=== PATIENT | male | born 1945 | race Caucasian/White ===

== ENCOUNTER 2019-01-25 08:48 | Inpatient (IN) | payer OTHER ==
[2019-01-14 09:17] LABS: ABSOLUTE BASOPHILS 0.1 thou/uL (0.0-0.2); ABSOLUTE EOSINOPHILS 0.2 thou/uL (0.0-0.7); ABSOLUTE LYMPHOCYTES 1.9 thou/uL (0.8-5.3); ABSOLUTE MONOCYTES 0.6 thou/uL (0.0-1.2); ABSOLUTE NEUTROPHILS 4.6 thou/uL (1.6-8.1); BASOPHILS 1.3 %; EOSINOPHILS 2.9 %; HEMATOCRIT 44.7 % (42.0-52.0); HEMOGLOBIN 15.5 gm/dL (14.0-18.0); MCH 31.6 pg (26.0-34.0); MCHC 34.6 g/dL (28.0-37.0); MCV 91.3 fL (80.0-100.0); MONOCYTES 7.8 %; MPV 8.9 fl. (7.2-11.1); NUCLEATED RBCS 0 /100WBC; PLATELET COUNT* 295 thou/uL (150-400); RDW-CV 12.3 % (10.5-14.5); WBC 7.3 thou/uL (4.0-11.0)
[2019-01-14 09:31] LABS: APTT 27.3 Seconds (25.0-31.3); PROTIME 10.3 Seconds (9.20-11.50)
[2019-01-14 09:39] LABS: ALBUMIN 3.7 g/dL (3.4-5.0); CALCIUM 8.8 mg/dL (8.5-10.1); POTASSIUM 4.2 mmol/L (3.5-5.1); TOTAL BILIRUBIN 0.8 mg/dL (<0.1-1.0); TOTAL PROTEIN 7.4 g/dL (6.4-8.2)
[2019-01-14 10:35] LABS: ESR (SEDRATE) 10 mm/hr (0-20)
--- NOTE | 2019-01-14 17:18 | EKG ---
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
[2019-01-15 16:06] LABS: GLYCOHEMOGLOBIN (HGB A1C) 5.8 % (4.8-5.6)
[~2019-01-25] VITALS: Ht 175.3 cm; Wt 107.0 kg
[~2019-01-25 08:48] MED LIST: CRESTOR20 MG PO; LIPITOR 20 MG T20 M1 PO; NEXIUM40 MG PO
[2019-01-25 10:41] VITALS: BP 150/91
[2019-01-25 18:35] VITALS: BP 136/83
--- NOTE | 2019-01-25 18:42 | NUR ---
PATIENT ARRIVED TO UNIT AT 1800. ALERT AND ORIENTED X4 BUT VERY SLEEPY. VSS ON 3 LITERS. NO COMPLAINTS UPON ASSESSMENT. FLUIDS STARTED AND INFUSING ORDERED. MEPILEX TO RIGHT HIP IS CLEAN, DRY, AND INTACT. ORIENTED PATIENT AND SPOUSE ORIENTED TO ROOM AND UNIT. FALL PRECAUTIONS IN PLACE. CALL LIGHT IN REACH. WILL CONTINUE TO MONITOR.
[2019-01-25 19:30] VITALS: BP 155/92
[2019-01-26] VITALS (7 sets, daily range): BP systolic 121–140; BP diastolic 67–78
[2019-01-26 04:37] LABS: HEMATOCRIT 38.5 % (42.0-52.0); HEMOGLOBIN 13.1 gm/dL (14.0-18.0)
--- NOTE | 2019-01-26 05:06 | NUR ---
PT SLEPT MOST OF SHIFT. ASSESSMENT DOCUMENTED. MEDS GIVEN PER E-MAR. IV PATENT, FLUIDS INFUSING. PAIN MEDS GIVEN PER E-MAR WITH RELIEF. ABDUCTOR WEDGE REMAINED IN PLACE. PT UNABLE TO VOID THIS SHIFT, BLADDER SCANNER READING 606, PHYSICIAN NOTIFIED, ORDERS RECIEVED. PT STATED HE WANTED TO TRY A TO URNIATE A LITTLE LATER BEFORE STRAIGHT CATH. PT STILL UNABLE TO VOID. STRAIGHT CATHED WITH 1050ML OUT. SCD'S IN PLACE. REMAINED AT BEDSIDE. DRESSING C/D/I. WILL CONTINUE WITH PLAN OF CARE.
[2019-01-26] MEDS ORDERED: ELIQUIS2.5 MG PO (10:05)
[2019-01-26] MEDS ORDERED: OXYCODONE HCL 55 MG PO (10:08)
--- NOTE | 2019-01-26 12:20 | NUR ---
CM CALLED IN PRESCRIPTION FOR ELIQUIS WRITTEN TO PT.'S [facility]ARM[facility] IN [place]. WILL CALL IN ONE HR.TO CHECK COPAY.
--- NOTE | 2019-01-26 13:55 | NUR ---
PER PHARMACY, COPAY FOR ELIQUIS IS $43. INFORMED PT.AND . THERAPY SAID HE DID WELL PHYSICALLY IN THERAPY BUT IS VERY ANXIOUS.
--- NOTE | 2019-01-26 16:24 | NUR ---
PT NOT PROGRESSING TOWARDS GOALS THIS SHIFT. PT PAIN MANAGED WITH PRN OXY IR. NO PRESCRIPTIONS OBTAINED FOR HOME PAIN MANAGEMENT AT THIS TIME. ATTEMPTS MADE TO CONTACT SURGERY RESIDENTS. HOSPITALISTS LEFT THE BUILDING ALREADY. UPDATED PT ON PLAN OF CARE AND PT AND STATE THEY WOULD NOW PREFER TO STAY ANOTHER NIGHT FOR PAIN MANAGEMENT. PT TOLERATING ORAL INTAKE. NO OTHER CONCERNS AT THIS TIME. CLWR. WCTM.
--- NOTE | 2019-01-26 17:02 | NUR ---
PT AND SPOUSE DISCUSSED PLAN OF CARE WITH SURGERY RESIDENT. PAIN MANAGEMENT PRESCRIPTIONS OBTAINED. PT AND SPOUSE OK WITH DISCHARGE NOW. DISCHARGE INSTRUCTIONS DISCUSSED WITH PT AND SPOUSE. PT REPORTS UNDERSTANDING. NO OTHER CONCERNS AT THIS TIME. CLWR. WCTM.
== END 2019-01-26 17:15 | disposition home or self-care (01) | DRG 470 ==
LOC: M.PRE 08:48 → M.TBA 09:29 → M.ORTHSURG 09:29 → M.PRE 14:11 → M.ORTHSURG 17:49
PROVIDERS: Internal Medicine; Orthopaedic Surgery; ADMIT Internal Medicine
PROC: 0SR903A Replacement of Right Hip Joint with Ceramic Synthetic Substitute, Uncemented, Open Approach (ICD-10-PCS; principal; 2019-01-25)
DX: M16.11 Unilateral primary osteoarthritis, right hip (principal); D62 Acute posthemorrhagic anemia; E78.5 Hyperlipidemia, unspecified; K21.9 Gastro-esophageal reflux disease without esophagitis; Z79.899 Other long term (current) drug therapy

== ENCOUNTER → 2020-04-11 | Outpatient (CLI) | payer OTHER ==
[~2020-04-11] MED LIST changes: +ELIQUIS2.5 MG PO; +FINASTERIDE5 MG PO; +OXYCODONE HCL 55 MG PO; +SILODOSIN8 MG PO
[2020-04-11 11:24] LABS: ABSOLUTE BASOPHILS 0.1 thou/uL (0.0-0.2); ABSOLUTE EOSINOPHILS 0.2 thou/uL (0.0-0.7); ABSOLUTE LYMPHOCYTES 1.6 thou/uL (0.8-5.3); ABSOLUTE MONOCYTES 0.5 thou/uL (0.0-1.2); ABSOLUTE NEUTROPHILS 4.2 thou/uL (1.6-8.1); BASOPHILS 1.2 %; EOSINOPHILS 2.4 %; LYMPHOCYTES 24.5 %; MCH 32.2 pg (26.0-34.0); MCHC 34.9 g/dL (28.0-37.0); MCV 92.1 fL (80.0-100.0); MONOCYTES 8.1 %; MPV 8.5 fl. (7.2-11.1); NUCLEATED RBCS 0 /100WBC; PLATELET COUNT* 297 thou/uL (150-400); POLYS 63.8 %; RBC 4.67 mil/uL (4.50-6.00); RDW-CV 12.6 % (10.5-14.5); WBC 6.6 thou/uL (4.0-11.0)
[2020-04-11 11:34] LABS: APTT 26.5 Seconds (25.0-31.3); PROTIME 10.7 Seconds (9.20-11.50)
[2020-04-11 11:50] LABS: ALBUMIN 3.7 g/dL (3.4-5.0); CALCIUM 8.9 mg/dL (8.5-10.1); CREATININE 1.1 mg/dL (0.6-1.3); POTASSIUM 4.7 mmol/L (3.5-5.1); TOTAL BILIRUBIN 0.6 mg/dL (<0.1-1.0); TOTAL PROTEIN 7.7 g/dL (6.4-8.2)
[2020-04-11 13:01] LABS: ESR (SEDRATE) 46 mm/hr (0-20)
--- NOTE | 2020-04-11 13:26 | EKG ---
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: : 1945 Requested By: Nelson Arana Order Number: [id number] Reading MD: Torres Rees Measurements Intervals [place] Rate: 71 P: 67 SC: 149 QRS: 70 QRSD: 101 T: -4 QT: 403 QTc: 438 Interpretive Statements Sinus rhythm Atrial premature complex Nonspecific T wave abnormality lead III Compared to ECG 01/14/2019 09:31:23 Atrial premature complex(es) now present Electronically Signed On 04-11-2020 13:26:39 CDT by Torres Rees [email or web address] <ELECTRONICALLY SIGNED> By: Torres Rees MD, [facility] 04/11/20 1326 1128 1128 Torres Rees MD, [facility] /EPI
[2020-04-12 02:06] LABS: GLYCOHEMOGLOBIN (HGB A1C) 5.6 % (4.8-5.6)
== END ==
LOC: M.LAB 11:06
PROVIDERS: ATTEND Orthopaedic Surgery
DX: Z01.812 Encounter for preprocedural laboratory examination (principal); Z20.828 Contact with and (suspected) exposure to other viral communicable diseases; M16.12 Unilateral primary osteoarthritis, left hip; I49.9 Cardiac arrhythmia, unspecified

== ENCOUNTER 2020-04-17 07:12 | Observation (INO) | payer OTHER, MEDICARE ==
[~2020-04-17] VITALS: Ht 175.3 cm; Wt 102.1 kg
[2020-04-17 08:00] VITALS: BP 149/79
[2020-04-17 13:41] VITALS: BP 125/74
[2020-04-17 22:30] VITALS: BP 108/72
[2020-04-18] VITALS (7 sets, daily range): BP systolic 107–128; BP diastolic 59–70
[2020-04-18 03:43] LABS: HEMATOCRIT 36.5 % (42.0-52.0); HEMOGLOBIN 12.7 gm/dL (14.0-18.0)
[2020-04-18] MEDS ORDERED: ELIQUIS5 MG PO (10:14)
[2020-04-18] MEDS ORDERED: OXYCODONE HCL 55 MG PO (10:14)
--- NOTE | 2020-05-16 10:43 | OP ---
[address] [address] OPERATIVE REPORT Name: MELIA TENA EVA Room: [address] Justin Menendez#: [id number] Admission: 04/17/20 Attend Phys: Luz Elias Discharge: 04/18/20 Date of : 41 Report #: [id number] THIS REPORT FOR: //name// cc: Eliezer Bliss Gregg R. DO ~ CC: Eliezer Ayala DATE OF SERVICE: 04/17/2020 PREOPERATIVE DIAGNOSIS: Advanced degenerative joint disease, left hip. POSTOPERATIVE DIAGNOSIS: Advanced degenerative joint disease, left hip. PROCEDURE: Left total hip arthroplasty. SURGEON: Nelson Arana DO ANESTHESIA: General endotracheal. COMPLICATIONS: None. ANTIBIOTICS: 2 g Ancef IVPB 30 minutes prior to incision. IMPLANTS: Biomet G7 total hip system with a 60 mm acetabular shell, a high wall 40 mm liner, a 14 x 113 mm femoral stem, a ceramic 40 mm head with a -3 taper adapter, a 6.5 x 25 mm screw, and a 6.5 x 30 mm screw. He received 2 grams of vancomycin topically in his incision and 1 gram of TXA IV preop and 1 gram postoperatively. ESTIMATED BLOOD LOSS: Less than 300 mL. INDICATIONS FOR SURGERY: The patient is a 74-year-old male with longstanding severe left hip pain. He is here today for elective surgical intervention. Risks and complications were discussed in detail with the patient and has been attached to the chart, december refer to. I reviewed them again with him and family today. All questions were answered. Signed informed consent is attached to chart, december refer to and his hip is marked preoperatively for timeout technique. DESCRIPTION OF PROCEDURE: The patient was taken to the operating suite and placed on the [place] table in supine position. Following general endotracheal anesthetic, the left hip was designated appropriate surgical site with timeout technique. The outline of the incision was made approximately 1 cm posterior to the ASIS, 1 cm distal and 6 cm in length. Incision was carried through skin and subcutaneous tissue after injecting the skin with [place] [address] OPERATIVE REPORT Name: MALLIKA,MELIA EVA Room: [address] Justin Menendez#: [id number] Admission: 04/17/20 Attend Phys: Luz Elias Discharge: 04/18/20 Date of : 41 Report #: [id number] incision was carried down to the tensor fascia. The tensor fascia was then incised in line with the skin incision, a cm posterior to the muscular interval of the sartorius and the tensor fascia michelle. This interval was then followed with blunt finger dissection down to the circumflex vessels, which were treated with Aquamantys and resected. With the appropriate retractors in place, the hip capsule is delineated, treated with the Aquamantys and resected anteriorly. A resection of the femur was then performed, one to the base of femoral neck, a fingerbreadth above the lesser trochanter, second at the base of femoral head. The femoral neck napkin ring portion is removed with bone tenaculum. The femoral head was removed with bone tenaculum as well measured on the back table and a reamer one size under the final cup was then utilized to ream the acetabulum under direct visualization as well as C-arm fluoroscopy. A 59 mm reamer was placed in the appropriate alignment and the appropriate depth. The final 60 mm cup was then obtained, placed on the back table, prepared for implant with vancomycin powder topically removing two of the screw holes. This was impacted firmly into place utilizing direct visualization, C-arm fluoroscopy and an external guide for alignment purposes. Once seated, the two drill holes were performed, measured and the appropriate-sized screws were placed. The apical screw cover was then placed. Drier And Evaporator Operator x-rays obtained to make certain that screws were in appropriate alignment and not in a problem area. The high wall liner was then impacted firmly in place with a high wall in the superior anterior direction. Attention was then turned to the femur. The femur was externally rotated. Foot was appropriately positioned with the appropriate retractors to allow access to the proximal femur. Proximal femur was then prepared with a box osteotome followed by rattail broach then sequentially broached to the appropriate size stem. The trial reduction was performed with a -3 taper adapter. Drier And Evaporator Operator x-rays were obtained to determine leg length and alignment of the stem as well as appropriate size. The leg was then placed through full range of motion at the hip and found to be extremely stable. Final components were then obtained, placed on the back table. Trial components were removed. Copious irrigation was carried out throughout the incision. The incision was treated with the Aquamantys where necessary as well as direct pressure. The incision has been injected with anesthetic solution through every layer throughout the procedure. Final stem was then impacted firmly in place after sprinkling vancomycin powder throughout the incision. A -3 taper adapter and a ceramic head was then impacted firmly onto a clean, dry Carter taper neck. Reduction was performed. Range of motion was checked and found to be full and stable throughout with no tendency towards dislocation. The incision was then closed with a #1 Quill suture in running fashion to the tensor fascia. The skin was reapproximated with 2-0 Monocryl subcutaneous sutures followed by running 3-0 Stratafix subcuticular suture. Skin was reinforced with Dermabond glue. Mepilex dressing was applied as well as a thigh high ANTONETTE hose. The patient tolerated the procedure well. Final instrument counts [place] [address] OPERATIVE REPORT Name: MELIA TENA Room: [address] Justin Menendez#: [id number] Admission: 04/17/20 Attend Phys: Luz lEias Discharge: 04/18/20 Date of : 41 Report #: [id number] x2. He was taken to recovery room in stable condition. No complications encountered. <ELECTRONICALLY SIGNED> By: Hernan Brink DO 05/16/20 1043 1711 [email or web address] Arana DO /adrien
== END 2020-04-18 14:24 | disposition home or self-care (01) ==
LOC: M.PRE → M.ORTHSURG 07:12 → M.TBA 07:12 → M.PRE 10:56 → M.ORTHSURG 13:36 → M.PRE 14:40 → M.ORTHSURG 04-18 14:24
PROVIDERS: Orthopaedic Surgery; ADMIT Internal Medicine; ATTEND Internal Medicine
DX: M16.12 Unilateral primary osteoarthritis, left hip (principal); N40.0 Benign prostatic hyperplasia without lower urinary tract symptoms; K21.9 Gastro-esophageal reflux disease without esophagitis; Z96.641 Presence of right artificial hip joint; Z79.899 Other long term (current) drug therapy